=== PATIENT | male | born 1985 | race Caucasian/White ===

== ENCOUNTER 2016-10-16 23:50 | Emergency (ER) | payer OTHER ==
[~2016-10-16] VITALS: Ht 175.3 cm; Wt 81.6 kg
[2016-10-17] MEDS ORDERED: NAPR500T PO (01:43)
[2016-10-17] MEDS ORDERED: KETOROLAC 60 MG/2 ML VIAL (J1885) IM ONE (01:45)
[2016-10-17 02:10] VITALS: BP 130/76
== END 2016-10-17 02:10 | disposition home or self-care (01) ==
LOC: M ED 10-17 00:25
DX: G54.0 Brachial plexus disorders (principal); G89.29 Other chronic pain; M79.671 Pain in right foot; F17.210 Nicotine dependence, cigarettes, uncomplicated
CPT/HCPCS: 96372; 99282; J1885